=== PATIENT | male | born 1990 | race African-American/Black ===

== ENCOUNTER 2017-12-13 04:47 | Emergency (ER) | payer OTHER ==
[2017-12-13] MEDS: DERMABOND TOPICAL SKIN ADHESIVE TOP (06:05)
== END 2017-12-13 06:21 | disposition home or self-care (01) ==
LOC: M ED 04:47
DX: S01.112A Laceration without foreign body of left eyelid and periocular area, initial encounter (principal); Y04.8XXA Assault by other bodily force, initial encounter; Y92.410 Unspecified street and highway as the place of occurrence of the external cause; Y93.9 Activity, unspecified; Y99.9 Unspecified external cause status
CPT/HCPCS: 12011

== ENCOUNTER 2018-02-02 22:01 | Emergency (ER) | payer OTHER ==
[2018-02-02] MEDS: IBUPROFEN 600 MG TAB PO (23:00)
[2018-02-02] MEDS: CEPHALEXIN 500 MG CAP PO (23:00)
[2018-02-02] MEDS: NORCO 5/325MG TABLET (BULK FOR ED) PO (23:09)
== END 2018-02-02 23:12 | disposition home or self-care (01) ==
LOC: M ED 22:01
DX: L03.116 Cellulitis of left lower limb (principal); S80.862A Insect bite (nonvenomous), left lower leg, initial encounter; Y92.9 Unspecified place or not applicable; Y93.9 Activity, unspecified; Y99.9 Unspecified external cause status
CPT/HCPCS: 99282

== ENCOUNTER 2018-08-05 03:11 | Emergency (ER) | payer OTHER ==
[~2018-08-05] VITALS: Ht 172.7 cm; Wt 78.2 kg
[~2018-08-05 03:11] MED LIST: IBUP-1022 PO; KEFL500C17 PO
[2018-08-05] MEDS ORDERED: NORCO, ANEXSIA 5/325MG TABLET (HYDROcodone/ACETAMINOPHEN) PO ONE (03:30)
[2018-08-05] MEDS ORDERED: AUGMENTIN 875 MG TAB PO ONE (03:30)
[2018-08-05] MEDS ORDERED: ANTIBIOTIC (04:03)
[2018-08-05] MEDS ORDERED: AUGM875T28 PO (04:04)
[2018-08-05] MEDS ORDERED: KETO10TAB PO (04:04)
[2018-08-05 04:41] VITALS: BP 136/81
== END 2018-08-05 04:42 | disposition home or self-care (01) ==
LOC: M ED 03:11
DX: H66.92 Otitis media, unspecified, left ear (principal)